=== PATIENT | male | born 1960 | race Caucasian/White ===

== ENCOUNTER 2018-07-06 11:30 | Emergency (ER) | payer OTHER ==
[~2018-07-06] VITALS: Ht 165.1 cm; Wt 68.0 kg
[2018-07-06] MEDS ORDERED: PNEU16DI2 (12:45)
[2018-07-06] MEDS ORDERED: SUBOXONE 8 MG-1 EACH (12:45)
[2018-07-06] MEDS ORDERED: OMEPRAZOLE40 MG PO (15:56)
[2018-07-06] MEDS ORDERED: ZANTAC150 M3 PO (15:56)
== END 2018-07-06 16:16 | disposition home or self-care (01) ==
LOC: ER 11:30 → CPU-OBS 11:50 → ER 16:16
DX: R07.89 Other chest pain (principal); K29.70 Gastritis, unspecified, without bleeding; R10.13 Epigastric pain
CPT/HCPCS: G0378; G0379; 93005